=== PATIENT | female | born 1945 | race African-American/Black ===

== ENCOUNTER 2016-09-25 16:27 | Emergency (ER) | payer MEDICARE, OTHER ==
[~2016-09-25] VITALS: Ht 154.9 cm; Wt 54.4 kg
[~2016-09-25 16:27] MED LIST: TRUFORM COMPRE1 EACH MC
--- NOTE | 2016-09-25 17:22 | Emergency Room Report ---
History of Present Illness General Chief Complaint: Lower Extremity Injury Source: Patient Present Illness HPI 71 YO Female presents to the ED c/o right buttock pain that radiates down into the posterior right thigh with certain positions s/p mechanical fall off a chair two days ago. denies incontinence, neck pain or hitting her head. Pt states she missed the chair when she went to sit down, and is having tenderness where she landed. pt. states she attempted to catch herself which slowed impact with the ground. pt. states she is able to ambulate without pain, pt. reports tenderness as the main symptom, and occasionally when she attempts to stand from sitting the pain is also exacerbated. denies bruising, erythema previous hip or back injury. denies midline back pain. Denies numbness tingling or loss of sensation or gross motor movements of the extremities, incontinence of bowel or bladder. Denies CP, Palpitations, LOC, AMS , dizziness, Changes in Vision, Sensation, paresthesias, or a sudden severe headache. Allergies: Coded Allergies: No Known Allergies (Unverified , 12/05/15) Patient History Past Medical History: see triage record Past Surgical History: none Pertinent Family History: none Last Menstrual Period: n/a Now: No Immunizations: UTD Reviewed Nursing Documentation: PMH: Agreed, PSxH: Agreed Nursing Documentation-PMH Past Medical History: No History, Except For Hx Hypertension: Yes Review of Systems All Other Systems: negative except mentioned in HPI Physical Exam Vital Signs Date Time Temp Pulse Resp B/P Pulse Ox O2 Delivery O2 Flow Rate FiO2 09/25/16 16:39 97.9 100 16 151/75 98 Room Air Sp02 EP Interpretation: reviewed, normal - 100bpm triage radial pulse is 80bpm General Appearance: no apparent distress, alert, GCS 15, non-toxic Head: normocephalic, atraumatic Eyes: bilateral eye PERRL, bilateral eye normal inspection ENT: hearing grossly normal, normal pharynx, no angioedema, normal voice Neck: full range of motion, no bony tend, supple/symm/no masses Respiratory: chest non-tender, lungs clear, normal breath sounds, speaking full sentences Cardiovascular #1: regular rate, rhythm, no edema Musculoskeletal: back normal, gait/station normal, normal range of motion, tender - right gluteal ttp, no spinal or hip TTP, no bony ttp noted, no bruising noted. Pt has FROM , pain in the right gluteus radiates to the posterior thigh at 90* forward flexion. Neurologic: alert, oriented x3, responsive, motor strength/tone normal, sensory intact, cerebellar normal, normal gait, speech normal Psychiatric: judgement/insight normal, memory normal, mood/affect normal Skin: normal color, no rash, warm/dry, well hydrated Medical Decision Making PA Attestation Dr. Isaac is my supervising Physician whom patient management has been discussed with. Diagnostic Impression: Primary Impression: Contusion Qualified Codes: S70.01XA - Contusion of right hip, initial encounter ER Course Pt. presents to the ED c/o right buttock pain that radiates down into the posterior right thigh with certain positions s/p mechanical fall off a chair two days ago. denies incontinence, neck pain or hitting her head. denies midline back pain or bone pain of the right hip. negative LOC Ddx considered but are not limited to Fracture, dislocation, contusion, Sprain/ Strain/Spasm, Epidural abscess, Neoplastic mets. Vital signs: are WNL, pt. is afebrile H&PE are most consistent with soft tissue contusion, with mild sciatica. ORDERS: - X-ray not utilized at this time as PE does not suggest bony tenderness, tenderness and pt's localization of pain is in the soft tissue of the right upper buttock ED INTERVENTIONS: - Tylenol PO DISCHARGE: At this time pt. is stable for d/c to home. Will provide printed patient care instructions, and any necessary prescriptions. Care plan and follow up instructions have been discussed with the patient prior to discharge. Last Vital Signs Date Time Temp Pulse Resp B/P Pulse Ox O2 Delivery O2 Flow Rate FiO2 09/25/16 16:39 97.9 100 16 151/75 98 Room Air Disposition: HOME, SELF-CARE Condition: Stable Scripts Cyclobenzaprine Hcl* (FLEXERIL*) 10 Mg Tablet 10 MG ORAL THREE TIMES A DAY for 7 Days, #21 TAB Prov: Brittany Nunez P.A. 09/25/16 Ibuprofen* (MOTRIN*) 400 Mg Tablet 400 MG ORAL THREE TIMES A DAY for 6 Days, #20 TAB 0 Refills Prov: Brittany Nunez P.A. 09/25/16 Patient Instructions: Contusion Additional Instructions: Take medications as directed. Follow up with PCP in 3-5 days Return sooner to ED if new symptoms occur, or current symptoms become worse. Do not drink alcohol, drive, or operate heavy machinery while taking flexeril as this may cause drowsiness. - Please note that this Emergency Department Report was dictated using [employer] agent fire [employer] technology software, occasionally this can lead to erroneous entry secondary to interpretation by the dictation equipment. Brittany Nunez Sep 25, 2016 17:22
[2016-09-25] MEDS ORDERED: CYCLOBENZAPRINE10 MG ORAL (17:24)
[2016-09-25] MEDS ORDERED: IBUPROFEN400 MG ORAL (17:24)
[2016-09-25 17:34] VITALS: BP 144/77
== END 2016-09-25 17:35 | disposition home or self-care (01) ==
LOC: EMR 17:24
DX: S70.01XA Contusion of right hip, initial encounter (principal); W07.XXXA Fall from chair, initial encounter; Y93.9 Activity, unspecified; Y92.9 Unspecified place or not applicable; I10 Essential (primary) hypertension
CPT/HCPCS: 99284

== ENCOUNTER 2019-02-17 13:07 | Emergency (ER) | payer MEDICARE ==
[~2019-02-17] VITALS: Ht 149.9 cm; Wt 46.7 kg
[~2019-02-17 13:07] MED LIST changes: +CYCLOBENZAPRINE10 MG ORAL; +IBUPROFEN400 MG ORAL
[2019-02-17 13:34] VITALS: BP 116/67
[2019-02-17 13:56] LABS: APPEARANCE,URINE CLEAR; BASOPHILS % (AUTO) 0.9 % (0.0-2.0); BILIRUBIN, URINE NEGATIVE (NEGATIVE); EOSINOPHILS % (AUTO) 2.5 % (0.0-3.0); GLUCOSE, URINE (UA) NEGATIVE (NEGATIVE); HEMATOCRIT 47.6 % (37.0-47.0); HEMOGLOBIN 15.3 G/DL (12.0-16.0); KETONES,URINE NEGATIVE (NEGATIVE); LEUKOCYTE ESTERASE ,URINE 2+ (NEGATIVE); LYMPHOCYTES % (AUTO) 11.9 % (20.0-45.0); MEAN CORPUSCULAR VOLUME 83 FL (80-99); MONOCYTES % (AUTO) 5.2 % (1.0-10.0); NEUTROPHILS % (AUTO) 79.5 % (45.0-75.0); NITRITE,URINE NEGATIVE (NEGATIVE); PH,URINE 6 (4.5-8.0); PLATELET COUNT 615 K/UL (150-450); PROTEIN,URINE NEGATIVE (NEGATIVE); RED BLOOD COUNT 5.77 M/UL (4.20-5.40); RED CELL DISTRIBUTION WIDTH 15.9 % (11.6-14.8); UROBILINOGEN,URINE NORMAL MG/DL (0.0-1.0); WHITE BLOOD COUNT 15.8 K/UL (4.8-10.8)
[2019-02-17 13:58] LABS: COLOR,URINE YELLOW
--- NOTE | 2019-02-17 14:03 | Emergency Room Report ---
History of Present Illness General Chief Complaint: General Complaint Source: Patient, Medical Record Present Illness HPI 74-year-old female history of smoking greater than 30 pack years history of hypertension presents with 4 hours of inability to speak, started 2018 patient reports that the symptoms subsided she also had tingling in her right thumb, she denies any fevers chills chest pain shortness of breath, patient was brought in for family members for her on symptomatology they initially thought it was secondary to her dentures not being paced in her mouth however patient stated that she just could not speak. Severity was severe lasting for hours, unknown aggravating relieving factors. Allergies: Coded Allergies: No Known Allergies (Unverified , 12/05/15) Patient History Past Medical History: see triage record Social History: Reports: smoking Last Menstrual Period: N/A Now: No Reviewed Nursing Documentation: PMH: Agreed; PSxH: Agreed Nursing Documentation-PMH Hx Hypertension: Yes Review of Systems All Other Systems: negative except mentioned in HPI Physical Exam Vital Signs Date Time Temp Pulse Resp B/P (MAP) Pulse Ox O2 Delivery O2 Flow Rate FiO2 02/17/19 13:21 97.5 76 18 116/67 (83) 95 Room Air Sp02 EP Interpretation: reviewed, normal General Appearance: well appearing, no apparent distress, alert Head: normocephalic, atraumatic Eyes: bilateral eye PERRL, bilateral eye EOMI ENT: uvula midline, moist mucus membranes Neck: supple, thyroid normal, supple/symm/no masses Respiratory: lungs clear, no respiratory distress, no retraction, no accessory muscle use Cardiovascular #1: normal peripheral pulses, regular rate, rhythm, no edema, no gallop, no murmur Gastrointestinal: non tender, soft, no guarding, no rebound Musculoskeletal: normal inspection Neurologic: alert, oriented x3, industrial tech instructor III-XII nml as tested, normal gait, speech normal, motor weakness - Slightly weaker boots and shoes supervisor strength on the right side, pronator - right arm, other - finger to nose testing intact Psychiatric: mood/affect normal Skin: no rash, warm/dry Procedures Critical Care Time Critical Care Time Given the critical condition in which the patient arrived, the patient was immediately assessed by myself and the nurse, and cardiac monitoring initiated due to the potential for rapid decompensation of the patient's clinical condition. During the course of the patient's stay, I spent a considerable amount of time at the bedside performing serial re-evaluations of the patient's hemodynamic and clinical status because of the recognized potential threat to life or limb in this condition. I then had a chance to review not only all of the available current laboratory and radiographic studies obtained today, but I also reviewed old records available to me at the time. Additionally, any ancillary information available including credit control clerk records were reviewed. Sequential vital signs were obtained. Critical Care time of 34 minutes was performed exclusive of billable procedures. Medical Decision Making Diagnostic Impression: Primary Impression: TIA (transient ischemic attack) Additional Impression: CVA (cerebral vascular accident) Qualified Codes: I63.49 - Cerebral infarction due to embolism of other cerebral artery ER Course 74-year-old female presents with strokelike symptoms that occurred 02/15/2019, differential diagnosis includes stroke TIA, ACS Patient most likely with a transient ischemic attack, out of the window for TPA Spoke with [facility] Dr. Del Rio at 3:15pm, no acute vascular interventions, aspirin load Patient given 325 of aspirin Will admit patient for TIA work-up, cardiac monitoring Spoke with Dr. Hawkins at 1553 Will admit patient to tele at [facility] Laboratory Tests Test 02/17/19 13:39 White Blood Count 15.8 K/UL (4.8-10.8) H Red Blood Count 5.77 M/UL (4.20-5.40) H Hemoglobin 15.3 G/DL (12.0-16.0) Hematocrit 47.6 % (37.0-47.0) H Mean Corpuscular Volume 83 FL (80-99) Mean Corpuscular Hemoglobin 26.5 PG (27.0-31.0) L Mean Corpuscular Hemoglobin Concent 32.1 G/DL (32.0-36.0) Red Cell Distribution Width 15.9 % (11.6-14.8) H Platelet Count 615 K/UL (150-450) H Mean Platelet Volume 6.5 FL (6.5-10.1) Neutrophils (%) (Auto) 79.5 % (45.0-75.0) H Lymphocytes (%) (Auto) 11.9 % (20.0-45.0) L Monocytes (%) (Auto) 5.2 % (1.0-10.0) Eosinophils (%) (Auto) 2.5 % (0.0-3.0) Basophils (%) (Auto) 0.9 % (0.0-2.0) Prothrombin Time 10.8 SEC (9.30-11.50) Prothrombin Time INR 1.0 (0.9-1.1) PTT 33 SEC (23-33) Urine Color Yellow Urine Appearance Clear Urine pH 6 (4.5-8.0) Urine Specific [place] 1.010 (1.005-1.035) Urine Protein Negative (NEGATIVE) Urine Glucose (UA) Negative (NEGATIVE) Urine Ketones Negative (NEGATIVE) Urine Blood Negative (NEGATIVE) Urine Nitrite Negative (NEGATIVE) Urine Bilirubin Negative (NEGATIVE) Urine Urobilinogen Normal MG/DL (0.0-1.0) Urine Leukocyte Esterase 2+ (NEGATIVE) H Urine RBC 0 /HPF (0 - 2) Urine WBC 5-10 /HPF (0 - 2) H Urine Squamous Epithelial Cells Few /LPF (NONE/OCC) Urine Bacteria Few /HPF (NONE) Urine Mucus Few /LPF (NONE/OCC) H Sodium Level 138 MMOL/L (136-145) Potassium Level 3.8 MMOL/L (3.5-5.1) Chloride Level 101 MMOL/L (98-107) Carbon Dioxide Level 25 MMOL/L (21-32) Anion Gap 12 mmol/L (5-15) Blood Urea Nitrogen 16 mg/dL (7-18) Creatinine 0.6 MG/DL (0.55-1.30) Estimate Glomerular Filtration Rate mL/min (>60) Glucose Level 120 MG/DL (74-106) H Calcium Level 9.4 MG/DL (8.5-10.1) Total Bilirubin 0.3 MG/DL (0.2-1.0) Aspartate Amino Transferase (AST) 19 U/L (15-37) Alanine Aminotransferase (ALT) 13 U/L (12-78) Alkaline Phosphatase 57 U/L (46-116) Total Creatine Kinase 28 U/L (26-308) Creatine Kinase MB 0.5 NG/ML (0.0-3.6) Creatine Kinase MB Relative Index 1.7 Troponin I 0.000 ng/mL (0.000-0.056) Pro-B-Type Natriuretic Peptide 113 pg/mL (0-125) Total Protein 7.4 G/DL (6.4-8.2) Albumin 3.9 G/DL (3.4-5.0) Globulin 3.5 g/dL Albumin/Globulin Ratio 1.1 (1.0-2.7) Triglycerides Level 134 MG/DL (30-150) Cholesterol Level 197 MG/DL (< 200) LDL Cholesterol 85 mg/dL (<100) HDL Cholesterol 87 MG/DL (40-60) H Cholesterol/HDL Ratio 2.3 (3.3-4.4) L Lipase 175 U/L (73-393) EKG Diagnostic Results EKG Time: 13:42 EP Interpretation: NSR, rate 72, QTc 462, no acute ST elevations, normal axis Rhythm Strip Diag. Results Rhythm Strip Time: 14:01 CT/MRI/US Diagnostic Results CT/MRI/US Diagnostic Results : Impression CT head no acute processes. Final Report EXAM: MR Head Without Intravenous Contrast CLINICAL HISTORY: WEAK TECHNIQUE: Magnetic resonance images of the head/brain without intravenous contrast in multiple planes. COMPARISON: CT head on 02/17/2019 FINDINGS: Brain: Foci of restricted diffusion along the left insular cortex and left centrum semiovale, compatible with acute infarcts. Possible punctate focus of restricted diffusion in the right centrum semiovale at the vertex. Associated T2 /FLAIR hyperintensity. Mild chronic small vessel ischemic disease. No hemorrhage. Ventricles: Prominence of the ventricles and sulci is likely secondary to cerebral volume loss. Bones/joints: Unremarkable. Sinuses: Mild mucosal thickening in the ethmoid air cells. No acute sinusitis. Mastoid air cells: Unremarkable as visualized. No mastoid effusion. Orbits: Unremarkable as visualized. IMPRESSION: Foci of restricted diffusion along the left insular cortex and left centrum semiovale, compatible with acute infarcts. Possible punctate focus of restricted diffusion in the right centrum semiovale at the vertex. Associated T2 /FLAIR hyperintensity. Radiologist: Ella Whipple M.D. Electronically Signed: 02/17/19 15:11 Study ready at 14:36 and initial results transmitted at 15:11 Critical Value Communications Clear Time Type Notes 02/17/19 15:22 Call Doctor Regarding Stroke, called Dr CHAIREZ on 02/17 15 :22 (-07:00) Final Report EXAM: MR Angiography Head Without Intravenous Contrast CLINICAL HISTORY: WEAK TECHNIQUE: Magnetic resonance angiography images of the head without intravenous contrast. COMPARISON: None FINDINGS: Right internal carotid artery: No acute findings. Intracranial segment is patent with no significant stenosis. No aneurysm. Right anterior cerebral artery: Unremarkable. No occlusion or significant stenosis. No aneurysm. Right middle cerebral artery: Unremarkable. No occlusion or significant stenosis. No aneurysm. Right posterior cerebral artery: Unremarkable. No occlusion or significant stenosis. No aneurysm. Right vertebral artery: Unremarkable as visualized. Left internal carotid artery: No acute findings. Intracranial segment is patent with no significant stenosis. No aneurysm. Left anterior cerebral artery: Unremarkable. No occlusion or significant stenosis. No aneurysm. Left middle cerebral artery: Unremarkable. No occlusion or significant stenosis. No aneurysm. Left posterior cerebral artery: Unremarkable. No occlusion or significant stenosis. No aneurysm. Left vertebral artery: Unremarkable as visualized. Basilar artery: Unremarkable. No occlusion or significant stenosis. No aneurysm. IMPRESSION: Normal head/brain MRA. Radiologist: Ella Whipple M.D. Electronically Signed: 02/17/19 15:13 Study ready at 15:03 and initial results transmitted at 15:13 Final Report EXAM: MR Angiography Neck Without Intravenous Contrast CLINICAL HISTORY: WEAK TECHNIQUE: Magnetic resonance angiography images of the neck without intravenous contrast. COMPARISON: None FINDINGS: Right common carotid artery: Unremarkable. No significant stenosis. No dissection or occlusion. Right internal carotid artery: Unremarkable. Extracranial segment is patent with no significant stenosis. No dissection or occlusion. Right external carotid artery: Unremarkable. No occlusion. Right vertebral artery: Unremarkable. No significant stenosis. No dissection or occlusion. Left common carotid artery: Unremarkable. No significant stenosis. No dissection or occlusion. Left internal carotid artery: Unremarkable. Extracranial segment is patent with no significant stenosis. No dissection or occlusion. Left external carotid artery: Unremarkable. No occlusion. Left vertebral artery: Unremarkable. No significant stenosis. No dissection or occlusion. Soft tissues: Unremarkable as visualized. CAROTID STENOSIS REFERENCE USING NASCET CRITERIA: % ICA stenosis = (1 - narrowest ICA diameter/diameter of distal cervical ICA) x 100. Mild - <50% stenosis. Moderate - 50-69% stenosis. Severe - 70-94% stenosis. Near occlusion - 95-99% stenosis. Occluded - 100% stenosis. IMPRESSION: Normal neck MRA. Radiologist: Ella Whipple M.D. Electronically Signed: 02/17/19 15:14 Study ready at 15:12 and initial results transmitted at 15:14 Last Vital Signs Date Time Temp Pulse Resp B/P (MAP) Pulse Ox O2 Delivery O2 Flow Rate FiO2 02/17/19 13:34 76 18 Room Air 02/17/19 13:34 97.5 116/67 95 Disposition: XFER [facility] [place] Condition: Stable Rhys Chairez MD Feb 17, 2019 14:03
[2019-02-17 14:07] LABS: ANION GAP 12 mmol/L (5-15); BLOOD UREA NITROGEN 16 mg/dL (7-18); CALCIUM 9.4 MG/DL (8.5-10.1); CARBON DIOXIDE 25 MMOL/L (21-32); CHLORIDE 101 MMOL/L (98-107); CREATININE 0.6 MG/DL (0.55-1.30); POTASSIUM 3.8 MMOL/L (3.5-5.1); SODIUM 138 MMOL/L (136-145)
--- NOTE | 2019-02-17 14:10 | Diagnostic Imaging Report ---
EXAM: CT Head Without Intravenous Contrast CLINICAL HISTORY: WEAK TECHNIQUE: Axial computed tomography images of the head brain without intravenous contrast. CTDI is 70.38 mGy and DLP is 1326.60 mGy-cm. One or more of the following dose reduction techniques were used: automated exposure control, adjustment of the mA and or kV according to patient size, use of iterative reconstruction technique. COMPARISON: CT head on 02 07 2008 images are not available at the time of interpretation. FINDINGS: Brain: No acute infarct or hemorrhage identified. No extra-axial fluid collection. No mass effect or midline shift. Scattered areas of hypoattenuation in the supratentorial white matter likely represent chronic small vessel ischemic changes. Ventricles and sulci: Prominence of the ventricles and sulci is likely secondary to cerebral volume loss. Skull: Normal. No bony lesion or fracture. Subcutaneous tissues: Normal. Sinuses: Normal. No air-fluid levels or mucosal thickening. Orbits: Grossly unremarkable. Other: Atherosclerotic calcifications in the intracranial vasculature. IMPRESSION: 1. No acute intracranial abnormality. 2. Mild chronic small vessel ischemic changes and cerebral volume loss.
[2019-02-17 14:19] LABS: ALANINE AMINOTRANSFERASE 13 U/L (12-78); ALBUMIN 3.9 G/DL (3.4-5.0); ALBUMIN/GLOBULIN RATIO 1.1 (1.0-2.7); ALKALINE PHOSPHATASE 57 U/L (46-116); ASPARTATE AMINO TRANSFERASE 19 U/L (15-37); BILIRUBIN,TOTAL 0.3 MG/DL (0.2-1.0); CHOLESTEROL 197 MG/DL (< 200); CKMB 0.5 NG/ML (0.0-3.6); CREATINE KINASE 28 U/L (26-308); HDL CHOLESTEROL 87 MG/DL (40-60); TRIGLYCERIDES 134 MG/DL (30-150)
--- NOTE | 2019-02-17 14:21 | Diagnostic Imaging Report ---
EXAM: XR Chest, 1 View CLINICAL HISTORY: WEAK TECHNIQUE: Frontal view of the chest. COMPARISON: Chest radiograph on 02 07 2008 FINDINGS: Hardware: None. Lungs pleura: Interstitial opacities, suggestive of very vasculature congestion interstitial edema. No significant pleural effusion or pneumothorax. Heart mediastinum: Atherosclerotic calcifications in the aorta. No cardiomegaly. Question hiatal hernia. Soft tissues: Unremarkable. Bones: No acute fracture. Upper abdomen: Normal. IMPRESSION: Interstitial opacities, suggestive of very vasculature congestion interstitial edema.
--- NOTE | 2019-02-17 15:12 | Diagnostic Imaging Report ---
EXAM: MR Head Without Intravenous Contrast CLINICAL HISTORY: WEAK TECHNIQUE: Magnetic resonance images of the head brain without intravenous contrast in multiple planes. COMPARISON: CT head on 02 17 2019 FINDINGS: Brain: Foci of restricted diffusion along the left insular cortex and left centrum semiovale, compatible with acute infarcts. Possible punctate focus of restricted diffusion in the right centrum semiovale at the vertex. Associated T2 FLAIR hyperintensity. Mild chronic small vessel ischemic disease. No hemorrhage. Ventricles: Prominence of the ventricles and sulci is likely secondary to cerebral volume loss. Bones joints: Unremarkable. Sinuses: Mild mucosal thickening in the ethmoid air cells. No acute sinusitis. Mastoid air cells: Unremarkable as visualized. No mastoid effusion. Orbits: Unremarkable as visualized. IMPRESSION: Foci of restricted diffusion along the left insular cortex and left centrum semiovale, compatible with acute infarcts. Possible punctate focus of restricted diffusion in the right centrum semiovale at the vertex. Associated T2 FLAIR hyperintensity. <MYCVCSECTION> Critical Value Communications 02 17 19 15:22 Call Doctor Regarding Stroke, called Dr GUTIERREZ on 02 17 15:22 (-07:00)
--- NOTE | 2019-02-17 15:13 | Diagnostic Imaging Report ---
EXAM: MR Angiography Head Without Intravenous Contrast CLINICAL HISTORY: WEAK TECHNIQUE: Magnetic resonance angiography images of the head without intravenous contrast. COMPARISON: None FINDINGS: Right internal carotid artery: No acute findings. Intracranial segment is patent with no significant stenosis. No aneurysm. Right anterior cerebral artery: Unremarkable. No occlusion or significant stenosis. No aneurysm. Right middle cerebral artery: Unremarkable. No occlusion or significant stenosis. No aneurysm. Right posterior cerebral artery: Unremarkable. No occlusion or significant stenosis. No aneurysm. Right vertebral artery: Unremarkable as visualized. Left internal carotid artery: No acute findings. Intracranial segment is patent with no significant stenosis. No aneurysm. Left anterior cerebral artery: Unremarkable. No occlusion or significant stenosis. No aneurysm. Left middle cerebral artery: Unremarkable. No occlusion or significant stenosis. No aneurysm. Left posterior cerebral artery: Unremarkable. No occlusion or significant stenosis. No aneurysm. Left vertebral artery: Unremarkable as visualized. Basilar artery: Unremarkable. No occlusion or significant stenosis. No aneurysm. IMPRESSION: Normal head brain MRA.
--- NOTE | 2019-02-17 15:15 | Diagnostic Imaging Report ---
EXAM: MR Angiography Neck Without Intravenous Contrast CLINICAL HISTORY: WEAK TECHNIQUE: Magnetic resonance angiography images of the neck without intravenous contrast. COMPARISON: None FINDINGS: Right common carotid artery: Unremarkable. No significant stenosis. No dissection or occlusion. Right internal carotid artery: Unremarkable. Extracranial segment is patent with no significant stenosis. No dissection or occlusion. Right external carotid artery: Unremarkable. No occlusion. Right vertebral artery: Unremarkable. No significant stenosis. No dissection or occlusion. Left common carotid artery: Unremarkable. No significant stenosis. No dissection or occlusion. Left internal carotid artery: Unremarkable. Extracranial segment is patent with no significant stenosis. No dissection or occlusion. Left external carotid artery: Unremarkable. No occlusion. Left vertebral artery: Unremarkable. No significant stenosis. No dissection or occlusion. Soft tissues: Unremarkable as visualized. CAROTID STENOSIS REFERENCE USING NASCET CRITERIA: % ICA stenosis = (1 - narrowest ICA diameter diameter of distal cervical ICA) x 100. Mild - <50% stenosis. Moderate - 50-69% stenosis. Severe - 70-94% stenosis. Near occlusion - 95-99% stenosis. Occluded - 100% stenosis. IMPRESSION: Normal neck MRA.
[2019-02-17 15:16] VITALS: BP 125/72
[2019-02-17 17:23] VITALS: BP 128/63
[2019-02-17 19:18] VITALS: BP 133/70
--- NOTE | 2019-02-19 11:17 | Cardiology Report ---
APPROVED REPORT EKG Measurement Heart [id number] ND [id number] Normal sinus rhythm Possible Left atrial enlargement Borderline ECG
== END 2019-02-17 19:18 | disposition short-term general hospital (02) ==
LOC: EMR 14:02
DX: I63.49 Cerebral infarction due to embolism of other cerebral artery (principal); I10 Essential (primary) hypertension; F17.200 Nicotine dependence, unspecified, uncomplicated
CPT/HCPCS: 36415; 70450; 70544; 70547; 70551; 71045; 80053; 80061; 81003; 82550; 82553; 83690; 83880; 84484; 85025; 85610; 85730; 93005; 99285; 99291

== ENCOUNTER 2019-03-22 15:13 | Emergency (ER) | payer MEDICARE, OTHER ==
[~2019-03-22] VITALS: Ht 149.9 cm; Wt 49.4 kg
[2019-03-22] MEDS ORDERED: PLAVIX75 MG ORAL (15:26)
[2019-03-22 15:32] VITALS: BP 135/74
--- NOTE | 2019-03-22 15:32 | NUR ---
ED Nurse Note: PT WALKED INTO ED DUE TO ORAL BLEEDING THAT STARTED AROUND 1445 THIS AFTERNOON. PER PT SHE HAS HX OF MINI STROKES AND IS CURRENTLY TAKING PLAVIX 75MG AND ASA 81 MG. AAO X4, AMBULATORY WITH UNLABORED BREATHING. NO SLURRING OF SPEECH OR ARM DROFTING AT THIS TIME. FAMILY MEMBER AT THE BED SIDE.
--- NOTE | 2019-03-22 15:50 | NUR ---
ED Nurse Note: COLLECTED BLOOD AND SENT.
--- NOTE | 2019-03-22 15:59 | Emergency Room Report ---
History of Present Illness General Chief Complaint: General Complaint Source: Patient Present Illness HPI This patient states that last month she was diagnosed with a CVA. She is on Plavix and aspirin. She states she believes that when she is putting in her dentures she bit to the side of her cheek. She states that there was some bleeding in her mouth and cheek. She denies pain at this time. She denies other bleeding. She denies bruising. She denies hematuria or pain. She has no other complaints. Allergies: Coded Allergies: No Known Allergies (Unverified , 12/05/15) Patient History Past Medical History: see triage record, HTN, CVA/TIA Social History: Denies: smoking, alcohol use, drug use Last Menstrual Period: n/a Reviewed Nursing Documentation: PMH: Agreed; PSxH: Agreed Nursing Documentation-PMH Past Medical History: No History, Except For Hx Hypertension: Yes Review of Systems All Other Systems: negative except mentioned in HPI Physical Exam Vital Signs Date Time Temp Pulse Resp B/P (MAP) Pulse Ox O2 Delivery O2 Flow Rate FiO2 03/22/19 15:22 98.2 65 18 124/67 (86) 98 Room Air Sp02 EP Interpretation: reviewed, normal General Appearance: no apparent distress, alert, GCS 15, non-toxic Head: normocephalic, atraumatic Eyes: bilateral eye normal inspection, bilateral eye PERRL ENT: hearing grossly normal, normal pharynx, no angioedema, normal voice, other - small amount of old blood in mouth. No active bleeding. Neck: full range of motion, supple/symm/no masses Respiratory: chest non-tender, lungs clear, normal breath sounds, no respiratory distress, no retraction, no accessory muscle use, speaking full sentences Cardiovascular #1: regular rate, rhythm, no edema Rectal: deferred Musculoskeletal: back normal, gait/station normal, normal range of motion, non- tender Neurologic: alert, oriented x3, responsive, motor strength/tone normal, sensory intact, speech normal Psychiatric: judgement/insight normal, memory normal, mood/affect normal, no suicidal/homicidal ideation Skin: no rash, normal color Medical Decision Making Diagnostic Impression: Primary Impression: Abrasion of intraoral region Additional Impression: Thrombocytosis ER Course This patient is found to have a tiny amount of blood in her mouth. Likely she has a small intraoral abrasion secondary to putting in her dentures. I did not identify a source of active bleeding. She has no other evidence of bleeding on exam. There are no ecchymoses. There is no gum bleeding. There are no nosebleeds. The patient's lab work-up identified thrombocytosis. The platelet count was greater than 1000. Differential for this is extensive. The patient did have an elevated platelet count a month ago although this is significantly higher at this time. I discussed the case with an internal medicine physician on-call for the patient's insurance company. Together with the case mgr, the [facility] will arrange a visit with a hematolgist/oncologist within the next 24 to 48 hours. The patient was pleased with this plan. I did not identify an emergency medical condition. The patient is given close return precautions and follow-up instructions. Laboratory Tests Test 03/22/19 15:45 03/22/19 16:50 White Blood Count 11.9 K/UL (4.8-10.8) H 12.2 K/UL (4.8-10.8) H Red Blood Count 5.57 M/UL (4.20-5.40) H 5.09 M/UL (4.20-5.40) Hemoglobin 14.4 G/DL (12.0-16.0) 13.3 G/DL (12.0-16.0) Hematocrit 44.9 % (37.0-47.0) 41.1 % (37.0-47.0) Mean Corpuscular Volume 81 FL (80-99) 81 FL (80-99) Mean Corpuscular Hemoglobin 25.9 PG (27.0-31.0) L 26.1 PG (27.0-31.0) L Mean Corpuscular Hemoglobin Concent 32.1 G/DL (32.0-36.0) 32.2 G/DL (32.0-36.0) Red Cell Distribution Width 14.6 % (11.6-14.8) 14.4 % (11.6-14.8) Platelet Count 1425 K/UL (150-450) *H 1315 K/UL (150-450) *H Mean Platelet Volume 6.3 FL (6.5-10.1) L 6.3 FL (6.5-10.1) L Neutrophils (%) (Auto) % (45.0-75.0) 70.1 % (45.0-75.0) Lymphocytes (%) (Auto) % (20.0-45.0) 18.9 % (20.0-45.0) L Monocytes (%) (Auto) % (1.0-10.0) 6.0 % (1.0-10.0) Eosinophils (%) (Auto) % (0.0-3.0) 3.8 % (0.0-3.0) H Basophils (%) (Auto) % (0.0-2.0) 1.2 % (0.0-2.0) Differential Total Cells Counted 100 Neutrophils % (Manual) 71 % (45-75) Lymphocytes % (Manual) 20 % (20-45) Monocytes % (Manual) 3 % (1-10) Eosinophils % (Manual) 3 % (0-3) Basophils % (Manual) 1 % (0-2) Band Neutrophils 2 % (0-8) Platelet Estimate Increased H Platelet Morphology Giant Platelets 1+ Polychromasia 1+ Anisocytosis 1+ Microcytosis 2+ Prothrombin Time 11.1 SEC (9.30-11.50) Prothrombin Time INR 1.0 (0.9-1.1) PTT 36 SEC (23-33) H Sodium Level 137 MMOL/L (136-145) Potassium Level 3.3 MMOL/L (3.5-5.1) L Chloride Level 101 MMOL/L (98-107) Carbon Dioxide Level 28 MMOL/L (21-32) Anion Gap 8 mmol/L (5-15) Blood Urea Nitrogen 18 mg/dL (7-18) Creatinine 0.6 MG/DL (0.55-1.30) Estimate Glomerular Filtration Rate mL/min (>60) Glucose Level 87 MG/DL (74-106) Calcium Level 9.5 MG/DL (8.5-10.1) Total Bilirubin 0.2 MG/DL (0.2-1.0) Aspartate Amino Transferase (AST) 24 U/L (15-37) Alanine Aminotransferase (ALT) 25 U/L (12-78) Alkaline Phosphatase 80 U/L (46-116) Total Protein 7.9 G/DL (6.4-8.2) Albumin 3.8 G/DL (3.4-5.0) Globulin 4.1 g/dL Albumin/Globulin Ratio 0.9 (1.0-2.7) L Last Vital Signs Date Time Temp Pulse Resp B/P (MAP) Pulse Ox O2 Delivery O2 Flow Rate FiO2 03/22/19 15:22 98.2 65 18 124/67 (86) 98 Room Air Status: improved Disposition: HOME, SELF-CARE Condition: Improved Referrals: [facility],REFERRING (PCP) Adrienne Muñoz DO Mar 22, 2019 15:59
[2019-03-22 16:23] LABS: HEMATOCRIT 44.9 % (37.0-47.0); HEMOGLOBIN 14.4 G/DL (12.0-16.0); MEAN CORPUSCULAR VOLUME 81 FL (80-99); RED BLOOD COUNT 5.57 M/UL (4.20-5.40); RED CELL DISTRIBUTION WIDTH 14.6 % (11.6-14.8); WHITE BLOOD COUNT 11.9 K/UL (4.8-10.8)
[2019-03-22 16:32] LABS: PLATELET COUNT 1425 K/UL (150-450)
[2019-03-22 16:52] LABS: ALANINE AMINOTRANSFERASE 25 U/L (12-78); ALBUMIN 3.8 G/DL (3.4-5.0); ALBUMIN/GLOBULIN RATIO 0.9 (1.0-2.7); ALKALINE PHOSPHATASE 80 U/L (46-116); ANION GAP 8 mmol/L (5-15); ASPARTATE AMINO TRANSFERASE 24 U/L (15-37); BILIRUBIN,TOTAL 0.2 MG/DL (0.2-1.0); BLOOD UREA NITROGEN 18 mg/dL (7-18); CALCIUM 9.5 MG/DL (8.5-10.1); CARBON DIOXIDE 28 MMOL/L (21-32); CHLORIDE 101 MMOL/L (98-107); CREATININE 0.6 MG/DL (0.55-1.30); POTASSIUM 3.3 MMOL/L (3.5-5.1); SODIUM 137 MMOL/L (136-145)
[2019-03-22 17:40] LABS: HEMATOCRIT 41.1 % (37.0-47.0); HEMOGLOBIN 13.3 G/DL (12.0-16.0); MEAN CORPUSCULAR VOLUME 81 FL (80-99); RED BLOOD COUNT 5.09 M/UL (4.20-5.40); RED CELL DISTRIBUTION WIDTH 14.4 % (11.6-14.8); WHITE BLOOD COUNT 12.2 K/UL (4.8-10.8)
--- NOTE | 2019-03-22 17:41 | NUR ---
ED Nurse Note: DR DAYTON SANDHU FOR PT TO EAT. SANDWICH AND JUICE PROVIDED TO PT.
[2019-03-22 17:50] LABS: BASOPHILS % (AUTO) 1.2 % (0.0-2.0); EOSINOPHILS % (AUTO) 3.8 % (0.0-3.0); LYMPHOCYTES % (AUTO) 18.9 % (20.0-45.0); NEUTROPHILS % (AUTO) 70.1 % (45.0-75.0); PLATELET COUNT 1315 K/UL (150-450)
--- NOTE | 2019-03-22 19:03 | NUR ---
HAND-OFF: Report given to Nga PALENCIA.
--- NOTE | 2019-03-22 19:05 | NUR ---
ED Nurse Note: Report received from SLIME Rainey. pt in bed. awake. VSS
[2019-03-22 19:24] VITALS: BP 130/64
--- NOTE | 2019-03-22 19:24 | NUR ---
ER DISCHARGE NOTE: Patient is cleared to be discharged per ERMD, pt is aox4, on room air, with stable vital signs. pt was given dc and prescription instructions, pt was able to verbalize understanding, pt id band and iv site removed without complications. pt is able to ambulate with steady gait. pt took all belongings.
== END 2019-03-22 19:24 | disposition home or self-care (01) ==
LOC: EMR 15:43
DX: S00.512A Abrasion of oral cavity, initial encounter (principal); D47.3 Essential (hemorrhagic) thrombocythemia; I10 Essential (primary) hypertension; Z86.73 Personal history of transient ischemic attack (TIA), and cerebral infarction without residual deficits; Z79.02 Long term (current) use of antithrombotics/antiplatelets; Z79.82 Long term (current) use of aspirin; X58.XXXA Exposure to other specified factors, initial encounter; Y92.9 Unspecified place or not applicable
CPT/HCPCS: 36415; 80053; 85007; 85025; 85610; 85730; 99283